=== PATIENT | female | born 2000 | race Hispanic/Latino ===

== ENCOUNTER 2019-07-19 22:54 | Emergency (ER) | payer OTHER ==
[~2019-07-19] VITALS: Ht 157.5 cm; Wt 65.0 kg
[2019-07-19] MEDS ORDERED: NS 1,000 ML IV ONE (23:45)
[2019-07-19] MEDS ORDERED: KETOROLAC 30 MG/ML VIAL (J1885) IV ONE (23:45)
[2019-07-20 00:16] LABS: BASO % 0.3 % (0.0-1.0); EOS # 0.2 10^3/uL (0.0-0.5); EOS % 1.6 % (0.0-3.0); HEMATOCRIT 38.9 % (36.0-47.0); HEMOGLOBIN 12.8 g/dl (12.0-15.5); LYMPH # 2.9 10^3/uL (1.5-5.0); MEAN CORPUSCULAR HEMOGLOBIN 28.6 pg (27.0-33.0); MEAN CORPUSCULAR HGB CONC 32.9 g/dl (32.0-36.5); MONO # 0.6 10^3/uL (0.0-0.8); MONO % 5.8 % (0.0-5.0); NEUTROPHILS # 7.2 10^3/uL (1.5-8.5); PLATELET COUNT, AUTOMATED 337 10^3/uL (150-450); RED BLOOD COUNT 4.47 10^6/uL (4.00-5.40)
[2019-07-20 00:46] LABS: ALT/SGPT 34 U/L (12-78); BILIRUBIN,DIRECT < 0.1 MG/DL (0.0-0.2); BILIRUBIN,TOTAL 0.1 MG/DL (0.2-1.0); LIPASE 201 U/L (73-393); TOTAL PROTEIN 7.8 GM/DL (6.4-8.2)
[2019-07-20 01:45] VITALS: BP 131/69
--- NOTE | 2019-07-20 07:50 | REP ---
Clinical: Chest and abdominal pain . Comparison: None . Technique: PA and lateral. Findings: The mediastinum and cardiac silhouette are normal. The lung nieves are clear and without acute consolidation, effusion, or pneumothorax. The skeletal structures are intact and normal. Impression: 1. No acute cardiopulmonary process. Electronically Signed by Tigre Workman MD 07/20/2019 07:41 A
== END 2019-07-20 02:05 | disposition home or self-care (01) ==
LOC: M ED 22:54
DX: R07.89 Other chest pain (principal); Z85.6 Personal history of leukemia
CPT/HCPCS: 71046; 80047; 80076; 83690; 84702; 85025; 93041; 96361; 96374; 99284; J1885